=== PATIENT | male | born 1970 | race Caucasian/White ===

== ENCOUNTER 2022-07-13 06:07 | Emergency (ER) | payer SELFPAY ==
[~2022-07-13] VITALS: Ht 167.6 cm; Wt 86.2 kg
[2022-07-13 06:09] VITALS: BP 170/90
--- NOTE | 2022-07-13 06:09 | NUR ---
to bed ambulatory
--- NOTE | 2022-07-13 06:20 | NUR ---
51 Y/O M presents with chest and head pain 5/10. pt also stated he has some anxiety since 0000 due to pressure in his lungs. he is getting over a cold. pt stated this has never happened before and pt had eye surgery on . pt denies any NVD and blood thinners. PMH- eye surgey NKA
--- NOTE | 2022-07-13 06:37 | NUR ---
Dr. Elise examining patient.
--- NOTE | 2022-07-13 06:48 | NUR ---
lights off for pt in bed 6 due to recent eye surgey
--- NOTE | 2022-07-13 06:56 | NUR ---
xray at bedside
--- NOTE | 2022-07-13 07:00 | NUR ---
COVID-19 and flu swabs collected and sent to lab.
--- NOTE | 2022-07-13 07:14 | NUR ---
transfer of care to [facility]
--- NOTE | 2022-07-13 07:20 | NUR ---
Report recieved report from MARTELL Moore for transfer of care.
[2022-07-13 07:22] LABS: BASOPHILS # (AUTO) 0.1 K/uL (0.00-0.22); BASOPHILS % (AUTO) 1.1 % (0.0-2.0); EOSINOPHILS # (AUTO) 0.2 K/uL (0-0.4); EOSINOPHILS % (AUTO) 3.4 % (0.0-4.0); HEMATOCRIT 46.1 % (36-52); HEMOGLOBIN 15.6 g/dL (12.0-18.0); LYMPHOCYTES # (AUTO) 1.4 K/uL (2.0-11.5); LYMPHOCYTES % (AUTO) 18.6 % (20.5-51.1); MEAN CORPUSCULAR HEMOGLOBIN 31 pg (27-31); MEAN CORPUSCULAR HGB CONC 34 g/dL (33-37); MEAN CORPUSCULAR VOLUME 90.1 fL (80-94); MONOCYTES # (AUTO) 0.5 K/uL (0.8-1.0); MONOCYTES % (AUTO) 6.6 % (1.7-9.3); NEUTROPHILS # (AUTO) 5.2 K/uL (1.8-7.7); NEUTROPHILS % (AUTO) 70.3 % (42.2-75.2); PLATELET COUNT (AUTO) 188 K/uL (140-450); RED BLOOD CELL COUNT(AUTO) 5.11 MIL/uL (4.20-6.10); RED CELL DISTRIBUTION WIDTH 13.4 % (11.6-13.7); WHITE BLOOD COUNT (AUTO) 7.3 K/uL (4.8-10.8)
[2022-07-13 07:35] LABS: ANION GAP 13.3 (8-16); CARBON DIOXIDE 27.2 mmol/L (21-32); CREATININE 0.9 mg/dL (0.6-1.3); POTASSIUM 4.5 mmol/L (3.5-5.1)
[2022-07-13] MEDS ORDERED: ATA10 PO (08:50)
[2022-07-13 09:12] VITALS: BP 130/67
--- NOTE | 2022-07-13 09:12 | NUR ---
Patient discharged with v/s stable. Written and verbal after care instructions given. Patient alert, oriented and verbalized understanding of instructions. Ambulatory with steady gait. All questions addressed prior to discharge. ID band removed. Patient advised to follow up with PMD. Rx of Atarax given. Opportunity to ask questions provided and answered. WORK NOTE HANDED TO PATIENT.
--- NOTE | 2022-07-13 09:13 | NUR ---
The patient's care was reviewed and supervised by Chely eKnt, RN, RN.
== END 2022-07-13 09:12 | disposition home or self-care (01) ==
LOC: MED 06:07
DX: F41.9 Anxiety disorder, unspecified (principal); Z20.822 Contact with and (suspected) exposure to COVID-19; R07.9 Chest pain, unspecified; Z72.89 Other problems related to lifestyle
CPT/HCPCS: 36415; 71045; 80048; 84484; 85025; 93005; 99285